=== PATIENT | male | born 1965 | race Caucasian/White ===

== ENCOUNTER 2024-08-29 08:57 | Emergency (ER) | payer OTHER, SELFPAY ==
--- NOTE | ~2024-08-29 | US_ITS ---
EXAMINATION: US venous doppler [facility] DATE: 08/29/2024 10:40 INDICATION: Bilateral lower limb swelling and erythema TECHNIQUE: Grayscale ultrasound images without and with compression and Doppler ultrasound images of the bilateral lower extremity veins were obtained. COMPARISON: None. FINDINGS: The visualized portions of right common femoral vein, profunda (deep) femoral vein, femoral vein, pop liteal vein, posterior tibial veins, peroneal veins and greater saphenous vein outflow are patent. The visualized portions of left common femoral vein, profunda femoral vein, femoral vein, popliteal v ein, posterior tibial veins, peroneal veins and greater saphenous vein outflow are patent. IMPRESSION: 1. No deep venous thrombosis in either lower limb. Reviewed, dictated and finalized at location A.
[2024-08-29 09:02] VITALS: BP 146/86; PULSE 63; RESP 18; TEMP 36.6; O2SAT 100
[2024-08-29 09:38] LABS: Basophils Percent Auto 0.4 % (0.2-1.2); Eosinophils Absolute Auto 0.1 K/mm3 (0-0.3); Eosinophils Percent Auto 1.4 % (0-4.4); Hematocrit 45.9 % (42.0-52.0); Hemoglobin 15.3 g/dL (14.0-18.0); Immature Granulocyte Absolute 0.06 K/mm3 (0.00-0.031); Immature Granulocyte Percent A 0.6 % (0-0.5); Lymphocytes Absolute Auto 1.86 K/mm3 (0.9-3.2); Lymphocytes Percent Auto 18.1 % (18.3-44.2); Mean Corpuscular HGB Conc 33.3 g/dl (32-36); Mean Corpuscular Hemoglobin 31.2 pg (26-34); Mean Corpuscular Volume 93.7 fl (80-100); Mean Platelet Volume 9.2 fl (7.4-10.4); Monocytes Absolute Auto 1.2 K/mm3 (0.1-0.6); Monocytes Percent Auto 11.2 % (2.6-8.5); Neutrophils Percent Auto 68.3 % (45.5-73.1); Platelet Count Result 301 k/mm3 (150-375); Red Cell Distribution Width 13.8 % (11.5-14.5); White Blood Count 10.3 K/mm3 (4.5-10.0)
[2024-08-29 09:48] LABS: Lactic Acid Reflex 0.8 mmol/L (0.7-2.0)
[2024-08-29 09:51] LABS: Alanine Aminotransferase 25 U/L (6-50); Albumin Level 3.9 g/dL (3.5-5.1); Alkaline Phosphatase 74 U/L (38-126); Anion Gap 5 mmol/L (4-12); Aspartate Amino Transferase 27 U/L (17-59); Bilirubin,Total 0.4 mg/dL (0.2-1.3); Blood Urea Nitrogen 13 mg/dL (9-20); CRP < 0.5 mg/dL (<1.0); Calcium 9.3 mg/dL (8.4-10.2); Carbon Dioxide 27 mmol/L (22-30); Chloride 106 mmol/L (98-107); Estimated CRCL calculation 100 ml/min; Estimated Glomerular Filt Rate > 60; Glucose 82 mg/dL (65-110); Potassium 4.1 mmol/L (3.4-5.0); Sodium 138 mmol/L (137-145); Total Protein 7.1 g/dL (6.3-8.2)
[2024-08-29 09:57] LABS: NT Pro B Type Natriuretic Pept 37 pg/mL (19.9-100)
[2024-08-29 10:38] LABS: Erythrocyte Sedimentation Rate 11 mm/hr (0-20)
[2024-08-29] MEDS: CEPHALEXIN 500 MG CAPSULE PO (11:04)
--- NOTE | 2024-08-29 11:22 | ED_ITS ---
HPI - Extremity Injury (Lower) General Chief Complaint: Extremity Injury, Lower Stated Complaint: redness and swelling to ankle, bilat knee pain Time Seen by Provider: 08/29/24 09:06 History of Present Illness HPI Narrative: Patient presents after noticing some swelling to his legs, over last month he has also had intermittent pain to his knees with some swelling to the knees however without any pain any more, he does have some pain to the left lower leg with some swelling around the ankle. No fevers or chills. Related Data Allergies Allergy/AdvReac Type Severity Reaction Status Date / Time No Known Allergies Allergy Verified 08/29/24 11:02 Review of Systems 2 Review of Systems: All systems reviewed & are unremarkable except as noted in HPI and below Exam 2 Narrative: EXAMINATION OF ORGAN SYSTEMS/BODY AREAS: Constitutional: Vital signs per nursing GENERAL:[No acute distress, non-toxic appearing.] HEAD: Normal with no signs of head trauma. EYES: EOMI, conjunctiva normal ENT: Hearing grossly intact LUNGS: Nonlabored breathing. HEART: [Regular rate and rhythm] ABD: [Soft], [nontender to palpation] EXT: Some swelling to the left lower leg greater than right, with some pitting edema, and some redness below left lower leg. Small left knee effusion without any redness to the knee, normal painless range of motion to the knee. SKIN: Some redness to the left lower leg NEURO: [Alert and oriented x 3. No gross focal sensory or strength deficits.] PSYCH: Normal affect Course Vital Signs Vital signs: Vital Signs Temperature 97.9 F 08/29/24 09:02 Pulse Rate 63 08/29/24 09:02 Respiratory Rate 18 08/29/24 09:02 Blood Pressure 146/86 H 08/29/24 09:02 Pulse Oximetry 100 08/29/24 09:02 Oxygen Delivery Room Air 08/29/24 09:02 Temperature 97.9 F 08/29/24 09:02 Pulse Rate 63 08/29/24 09:02 Respiratory Rate 18 08/29/24 09:02 Blood Pressure 146/86 H 08/29/24 09:02 Pulse Oximetry 100 08/29/24 09:02 Oxygen Delivery Room Air 08/29/24 09:02 MDM - Extremity Injury (Lower) MDM Narrative Medical decision making narrative: Patient presenting with swelling to bilateral lower extremity with more swelling to the left leg and some redness, he has also in the past had left knee effusion with some slight pain in the knee though the pain has resolved in the knee. He is quite well-appearing here, there is a red rash to the lower leg, does not extend to the knee, he does have a small knee effusion but completely normal range of motion to the left knee, I therefore have very low concern for septic arthritis, he also has no systemic symptoms. I did however obtain infectious workup including blood cultures, he does have a very minimally elevated white count however normal ESR and CRP and lactic so very unlikely septic arthritis. DVT studies obtained thankfully are negative. At this point I do suspect most likely a cellulitis to left lower leg, which I have started him on Keflex for, and he is given strict return precautions for any signs of potential septic arthritis I will also have him follow-up with Orthopedics at this time; I suspect the chronic knee effusion likely from osteoarthritis/flare. Patient agreeable to this plan. Lab Data 08/29/24 09:31 08/29/24 09:31 Labs: Lab Results 08/29/24 Range/Units 09:31 WBC 10.3 H (4.5-10.0) K/mm3 RBC 4.90 (4.6-6.20) M/mm3 Hgb 15.3 (14.0-18.0) g/dL Hct 45.9 (42.0-52.0) % MCV 93.7 (80-100) fl MCH 31.2 (26-34) pg MCHC 33.3 (32-36) g/dl RDW 13.8 (11.5-14.5) % Plt Count 301 (150-375) k/mm3 MPV 9.2 (7.4-10.4) fl Immature Gran % (Auto) 0.6 H (0-0.5) % Neut % (Auto) 68.3 (45.5-73.1) % Lymph % (Auto) 18.1 L (18.3-44.2) % Marshall % (Auto) 11.2 H (2.6-8.5) % Eos % (Auto) 1.4 (0-4.4) % Baso % (Auto) 0.4 (0.2-1.2) % Lymph # (Auto) 1.86 (0.9-3.2) K/mm3 Marshall # (Auto) 1.2 H (0.1-0.6) K/mm3 Eos # (Auto) 0.1 (0-0.3) K/mm3 Baso # (Auto) 0.0 (0.0-0.1) K/mm3 Abs Immat Gran (auto) 0.06 H (0.00-0.031) K/mm3 Absolute Neuts (auto) 7.0 H (1.3-6.7) K/mm3 Absolute Nucleated RBC 0.000 (0.0-0.012) K/mm3 Nucleated RBC % 0.0 (0.0-0.2) % ESR 11 (0-20) mm/hr Sodium 138 (137-145) mmol/L Potassium 4.1 (3.4-5.0) mmol/L Chloride 106 (98-107) mmol/L Carbon Dioxide 27 (22-30) mmol/L Anion Gap 5 (4-12) mmol/L BUN 13 (9-20) mg/dL Creatinine 0.88 (0.7-1.3) mg/dL Estim Creat Clear Calc 100 ml/min Estimated GFR > 60 (59 - ) Glucose 82 (65-110) mg/dL Lactic Acid 0.8 (0.7-2.0) mmol/L Calcium 9.3 (8.4-10.2) mg/dL Total Bilirubin 0.4 (0.2-1.3) mg/dL AST 27 (17-59) U/L ALT 25 (6-50) U/L Alkaline Phosphatase 74 (38-126) U/L C-Reactive Protein < 0.5 (<1.0) mg/dL NT-Pro-B Natriuret Pep 37 (19.9-100) pg/mL Total Protein 7.1 (6.3-8.2) g/dL Albumin 3.9 (3.5-5.1) g/dL Discharge Plan Discharge Clinical Impression: Cellulitis Patient Disposition: Home Condition: Stable Instructions: Antibiotic Form, Cellulitis (ED), Swollen Knee Joint (ED) Additional Instructions: Please follow-up with orthopedic surgeon. Take the antibiotics as prescribed. If you start noticing increasing swelling or pain to the leg, especially if you start noticing the redness going to your knee with pain on movement of the knee, come back to the emergency room immediately. Patient Language: Citizen Of [place] Prescriptions: New cephalexin 500 mg capsule 500 mg PO Q6H 7 Days Qty: 28 0RF Follow-up/Referrals: Luis Manuel Tsang MD [Physician] - 2 Days UNKNOWN,DOCTOR [Primary Care Provider] -
[2024-08-29 11:26] VITALS: BP 156/92; PULSE 65; RESP 18; O2SAT 100
== END 2024-08-29 11:28 | disposition home or self-care (01) ==
PROVIDERS: Emergency Provider Emergency Medicine
DX: L03.116 Cellulitis of left lower limb (principal); L03.115 Cellulitis of right lower limb
CPT/HCPCS: 36415; 80053; 83605; 83880; 85025; 85652; 86140; 87040; 93970; 99284; A9270